=== PATIENT | female | born 1940 | race Caucasian/White ===

== ENCOUNTER → 2017-02-18 | Outpatient (CLI) | payer BC ==
[~2017-02-18] MED LIST: DIAZ10TA PO; PRAZ1CAP10 PO; TRAZ50TA35 PO; VENL-273 PO; VENL150T33 PO
[2017-02-18 12:03] LABS: HEMATOCRIT 31.2 % (37-47); MEAN CELL VOLUME 91.2 fL (80-100); MEAN CORPUSCULAR HEMOGLOBIN 28.9 pg (25-34); MEAN CORPUSCULAR HGB CONC 31.7 g/dl (32-36); MEAN PLATELET VOLUME 9.1 fL (7.4-10.4); PLATELET COUNT 495 K/uL (130-400); RED BLOOD COUNT 3.42 M/uL (4.2-5.4); WHITE BLOOD COUNT 27.11 K/uL (4.8-10.8)
[2017-02-18 12:47] LABS: BASO % 0.1 %; BASO ABS # 0.04 K/uL (0-0.2); COMPLETE YES; EOS % 0.5 %; IG% 0.1 %; LYMPH % 78.2 %; LYMPH ABS # 21.19 K/uL (1.2-3.4); MONO % 1.5 %; NEUT % 19.6 %; SMUDGE CELLS PRESENT
== END | disposition home or self-care (01) ==
LOC: C.LAB 11:27
PROVIDERS: ATTEND Internal Medicine Hematology
DX: C91.11 Chronic lymphocytic leukemia of B-cell type in remission (principal)

== ENCOUNTER → 2017-09-26 | Outpatient (CLI) | payer BC ==
[2017-09-26 11:47] LABS: HEMATOCRIT 36.9 % (37-47); MEAN CELL VOLUME 96.3 fL (80-100); MEAN CORPUSCULAR HEMOGLOBIN 30.5 pg (25-34); MEAN CORPUSCULAR HGB CONC 31.7 g/dl (32-36); MEAN PLATELET VOLUME 9.8 fL (7.4-10.4); PLATELET COUNT 241 K/uL (130-400); RED BLOOD COUNT 3.83 M/uL (4.2-5.4); WHITE BLOOD COUNT 25.42 K/uL (4.8-10.8)
[2017-09-26 12:11] LABS: ALT/SGPT 19 U/L (12-78); AST/SGOT 13 U/L (15-37); BLOOD UREA NITROGEN 15 mg/dl (7-18); BUN/CREATININE RATIO 14.6 (10-20); CALCIUM 9.7 mg/dl (8.5-10.1); CARBON DIOXIDE 27 mmol/L (21-32); CHLORIDE 104 mmol/L (98-107); CREATININE 1.04 mg/dl (0.60-1.20); GLUCOSE 105 mg/dl (70-99); POTASSIUM 3.7 mmol/L (3.5-5.1); SODIUM 138 mmol/L (136-145)
[2017-09-26 12:14] LABS: ALB/GLOB RATIO 1.3 (0.9-2); ALKALINE PHOSPHATASE 78 U/L (45-117)
[2017-09-26 12:47] LABS: BASO % 0.2 %; BASO ABS # 0.04 K/uL (0-0.2); COMPLETE YES; EOS % 0.5 %; IG% 0.1 %; LYMPH % 90.8 %; LYMPH ABS # 23.09 K/uL (1.2-3.4); MONO % 0.9 %; NEUT % 7.5 %; SMUDGE CELLS PRESENT
== END | disposition home or self-care (01) ==
LOC: C.LAB 09:43
PROVIDERS: ATTEND Internal Medicine
DX: R42 Dizziness and giddiness (principal); C91.10 Chronic lymphocytic leukemia of B-cell type not having achieved remission

== ENCOUNTER → 2017-11-25 | Outpatient (CLI) | payer BC | END | disposition home or self-care (01) | LOC: C.MAMM 13:51 | PROVIDERS: ATTEND Internal Medicine | DX: M85.852 Other specified disorders of bone density and structure, left thigh (principal); M85.851 Other specified disorders of bone density and structure, right thigh; M81.0 Age-related osteoporosis without current pathological fracture ==

== ENCOUNTER 2018-01-30 16:21 | Emergency (ER) | payer BC ==
[~2018-01-30] VITALS: Ht 152.4 cm; Wt 46.3 kg
[2018-01-30 16:23] VITALS: TEMP 36.4; Ht 152.4 cm; Wt 46.3 kg
--- NOTE | 2018-01-30 16:41 | EMERGENCY ROOM VISIT NOTE ---
History Report prepared by Cherry: Danilo Buckner Under the Supervision of: Dr. Oscar Esquivel M.D. First contact with patient: 16:30 Chief Complaint: OTHER COMPLAINT Stated Complaint: BROKEN PUBIC BONE History of Present Illness The patient is a 77 year old female who presents to the Emergency Room after referral from her oncologist after a pelvic x-ray was found concerning for a pelvic fracture. The patient states that she fell on Friday, 5 days ago. She missed a step as she was walking down a flight of stairs and fell down 2-3 steps. She states that she hurt her left hip and her head on the fall. She did not lose consciousness. The patient rates the constant pain in her hip as a 6/ 10 in severity. The patient has a history of CLL and mentioned the fall to her oncologist who ordered the x-ray. She is experiencing an intermittent headache, but also complains that she has chronic dry-eyes which could be causing the headache. The patient is having difficulty walking, so she borrowed her neighbor 's walker which is improving the pain when she walks. Source of History: patient Onset: 5 days ago Position: other (Left hip) Symptom Intensity: 6/10 Timing: constant Note: Dry eyes Review of Systems See HPI for pertinent positives & negatives. A total of 10 systems reviewed and were otherwise negative. Past Medical & Surgical Medical Problems: (1) Chronic leukemia, disease (2) Multiple sclerosis Family History Omitted secondary to age. Social History Smoking Status: Never Smoker Alcohol Use: none Housing Status: lives alone Occupation Status: retired Current/Historical Medications Scheduled Diazepam (Valium), 5 MG PO PRN Mirtazapine Soltab (Remeron Soltab), 1 TAB PO QPM Prazosin Hcl (Prazosin), 1 MG PO QPM Allergies Coded Allergies: Mushroom (Unverified Allergy, Intermediate, DIARRHEA, 01/30/18) Physical Exam Vital Signs Date Time Temp Pulse Resp B/P (MAP) Pulse Ox O2 Delivery O2 Flow Rate FiO2 01/30/18 17:22 69 18 125/72 96 Room Air 01/30/18 16:23 36.4 83 18 139/79 98 Room Air Physical Exam GENERAL: Patient is in no acute distress. HEENT: No acute trauma, normocephalic atraumatic, mucous membranes moist, no nasal congestion, no scleral icterus. NECK: No stridor, no adenopathy, no meningismus, trachea is midline. Nontender posterior c-spine. LUNGS: Clear to auscultation bilaterally, no wheeze, no rhonchi, breath sounds equal. HEART: Without murmurs gallops or rubs, regular rate and rhythm. ABDOMEN: Soft, nontender, bowel sounds positive, no hernias, no peritonitis. EXTREMITIES: No cyanosis or edema, full range of motion of all the joints without pain or difficulty, no signs for acute trauma. PELVIS: There is tenderness in the left groin with palpation. No pain with pelvic rock. NEUROLOGIC: Oriented x 3, no acute motor or sensory deficits, no focal weakness. SKIN: No rash, no jaundice, no diaphoresis. Medical Decision & Procedures ER Provider Diagnostic Interpretation: Radiology results as stated below per my review and radiologist interpretation: HEAD WITHOUT CONTRAST (CT) CT DOSE: 537.48 mGy.cm HISTORY: Trauma fall, headache TECHNIQUE: Multiaxial CT images of the head were performed without the use of intravenous contrast. A dose lowering technique was utilized adhering to the principles of ALARA. Comparison: 01/14/2013 Findings: Soft tissue opacification right mastoid air cells. Moderate opacification left mastoid air cells. The calvarium and skull base are intact. The ventricles and sulci are within normal limits. There is no mass, hematoma, midline shift, or acute infarct. Age-related chronic small vessel change and scattered regions of encephalomalacia. No acute intracranial abnormality. Impression: 1. No acute intracranial abnormality. 2. Age-related change 3. Opacified right mastoid air cells with moderate mucosal thickening left mastoid air cells. PELVIS NO IV/ORAL CONT (CT) CLINICAL HISTORY: poss ramus fx on left TECHNIQUE: Transaxial acquisition with multi axial reformatted images COMPARISON STUDY: None FINDINGS: Nondisplaced cortical fractures medial aspect left pubic ring and left symphysis pubis. Slight deformity right symphysis pubis felt to be nonacute. Moderate degenerative change of the hips bilaterally. No evidence for acetabular protrusion. Mild bladder distention. IMPRESSION: 1. Nondisplaced cortical fractures medial left pubic ring and left symphysis pubis. 2. Old healed fracture right symphysis pubis. 3. Bladder distention. The above report was generated using voice recognition software. It may contain grammatical, syntax or spelling errors. Electronically signed by: Deni Richards M.D. 01/30/2018 5:32 PM Dictated Date/Time: 01/30/2018 5:22 PM Laboratory Results URINE DIP: Patient's Urine Dip is negative for blood or infection. Medications Administered Medications (Trade) Dose Ordered Sig/Rudy Route Start Time Stop Time Status Last Admin Dose Admin Acetaminophen (Tylenol Tab) 650 mg NOW STAT PO 01/30/18 18:06 01/30/18 18:07 DC 01/30/18 18:27 650 MG ED Course 1630: The patient was evaluated in room C9. A complete history and physical exam was performed. 1755: I discussed the case with Dr. Castro - Orthopedic Surgery. He states that the patient is safe to be discharged home. 1758: Reevaluated the patient. Discussed results and discharge instructions: she verbalized understanding and agreement. The patient is ready for discharge. Medical Decision Differential diagnosis includes; pelvic fracture, hip fracture, intracranial bleed, chest/back/abdominal trauma. Patient presents with an outpatient x-ray finding of pelvic fracture. A pelvic CT was done. The patient does have a left pubic ramus/ring fracture. No hip fracture. Brain CT shows no acute bleed or mass-effect. On my exam, patient had very minimal pain to move her left hip. The patient has been walking at home with a walker. The patient was given oral Tylenol. I spoke with orthopedics. The patient can be discharged with the walker and outpatient follow-up. No surgical intervention required. By exam, there was no evidence for injury to the back, neck, chest or abdomen. Medication Reconcilliation Current Medication List: was personally reviewed by me Blood Pressure Screening Patient's blood pressure: Normal blood pressure Consults Time Called: 1747 Consulting Physician: Dr. Castro - Orthopedic Surgery Returned Call: 1755 I discussed the case with Dr. Castro - Orthopedic Surgery. He states that the patient is safe to be discharged home. Impression Primary Impression: Pelvic fracture Additional Impressions: Head trauma Fall Scribe Attestation The scribe's documentation has been prepared under my direction and personally reviewed by me in its entirety. I confirm that the note above accurately reflects all work, treatment, procedures, and medical decision making performed by me. Departure Information Dispostion Home / Self-Care Referrals Sasha GUO M.D. (PCP) Forms HOME CARE DOCUMENTATION FORM, IMPORTANT VISIT INFORMATION, WORK / SCHOOL INSTRUCTIONS Patient Instructions My [facility] Additional Instructions tylenol for pain continue to use the walker to help with getting around follow with orthopedics next week--you will need to call for an appt this fracture should heal without surgery Problem Qualifiers
[2018-01-30 17:22] VITALS: BP 125/72; PULSE 69; O2SAT 96
--- NOTE | 2018-01-30 17:23 | DIAGNOSTIC IMAGING REPORT ---
HEAD WITHOUT CONTRAST (CT) CT DOSE: 537.48 mGy.cm HISTORY: Trauma fall, headache TECHNIQUE: Multiaxial CT images of the head were performed without the use of intravenous contrast. A dose lowering technique was utilized adhering to the principles of ALARA. Comparison: 01/14/2013 Findings: Soft tissue opacification right mastoid air cells. Moderate opacification left mastoid air cells. The calvarium and skull base are intact. The ventricles and sulci are within normal limits. There is no mass, hematoma, midline shift, or acute infarct. Age-related chronic small vessel change and scattered regions of encephalomalacia. No acute intracranial abnormality. Impression: 1. No acute intracranial abnormality. 2. Age-related change 3. Opacified right mastoid air cells with moderate mucosal thickening left mastoid air cells. The above report was generated using voice recognition software. It may contain grammatical, syntax or spelling errors. Electronically signed by: Deni Richards M.D. 01/30/2018 5:22 PM Dictated Date/Time: 01/30/2018 5:19 PM
[2018-01-30] MEDS ORDERED: MIRT15TA2 PO (17:28)
--- NOTE | 2018-01-30 17:33 | DIAGNOSTIC IMAGING REPORT ---
PELVIS NO IV/ORAL CONT (CT) CLINICAL HISTORY: poss ramus fx on left TECHNIQUE: Transaxial acquisition with multi axial reformatted images COMPARISON STUDY: None FINDINGS: Nondisplaced cortical fractures medial aspect left pubic ring and left symphysis pubis. Slight deformity right symphysis pubis felt to be nonacute. Moderate degenerative change of the hips bilaterally. No evidence for acetabular protrusion. Mild bladder distention. IMPRESSION: 1. Nondisplaced cortical fractures medial left pubic ring and left symphysis pubis. 2. Old healed fracture right symphysis pubis. 3. Bladder distention. The above report was generated using voice recognition software. It may contain grammatical, syntax or spelling errors. Electronically signed by: Deni Richards M.D. 01/30/2018 5:32 PM Dictated Date/Time: 01/30/2018 5:22 PM
[2018-01-30] MEDS ORDERED: ACETAMINOPHEN 325 MG TAB PO STA (18:06)
== END 2018-01-30 18:36 | disposition home or self-care (01) ==
LOC: C.EDB 16:22 → C.EDC 18:36
DX: S32.810A Multiple fractures of pelvis with stable disruption of pelvic ring, initial encounter for closed fracture (principal); S09.90XA Unspecified injury of head, initial encounter; W10.9XXA Fall (on) (from) unspecified stairs and steps, initial encounter; Z85.6 Personal history of leukemia; G35 Multiple sclerosis; Z79.899 Other long term (current) drug therapy; Z91.018 Allergy to other foods